=== PATIENT | female | born 1980 | race Caucasian/White ===

== ENCOUNTER 2018-09-20 18:41 | Emergency (ER) | payer OTHER, SELFPAY ==
[2018-09-20 18:42] VITALS: BP 117/78; PULSE 68; RESP 18; TEMP 36.5; O2SAT 100; BMI 31.1
--- NOTE | 2018-09-20 18:57 | ED.DCSUM_ITS ---
- ER Visit Summary Date of Service: 09/20/18 Chief Complaint: Headache History of Present Illness: The patient is a 37 F who has had a headache for the past 3 days. It is intermittent in nature. It similar to her prior migraine headaches in the past. Light makes it worse. She has had nausea without vomi ting. She admits to photophobia as well. No visual changes. She does have some pain in the neck as well. Denies any falls or trauma. She has tried Maxalt and ibuprofen without any relief. She describes as a my head is in a vice Physical Examination: Vital signs reviewed. HEENT exam unremarkable. She does have diffuse neck tenderness to palpation. Heart is regular rate and rhythm without murmurs. Lungs are clear to auscultation. Abdomen is soft and nontender. Extremities reveal no edema. Skin exam normal. Neurologic exam normal. Test Results: None performed Emergency Department Course and Treatment: Patient was given Compazine, Benadryl, Toradol and normal saline. She feels improved. Patient will be discharged home to use her home medications. She will follow-up with her PCP Treatment Plan: [] Disposition: Discharge Impression: Migraine headache This note was generated with [employer] dictation software. It may contain incorrect words, spelling, and punctuation that were not noted in review of the chart prior to signing ED Disposition - Plan for ED Patient: Chief Complaint: Headache Referrals: Eulogio Velazquez MD [Primary Care Provider] -
[2018-09-20 19:08] VITALS: BP 122/79; PULSE 63; RESP 16; O2SAT 98
[2018-09-20] MEDS: 0.9% Normal Saline 1,000 ML 999 ML IV (19:28)
[2018-09-20] MEDS: DiphenhydrAMINE 50 MG/ML Syringe 25 MG IV (19:28)
[2018-09-20] MEDS: Ketorolac 30 MG/ML Syringe IV (19:29)
[2018-09-20] MEDS: proCHLORPERazine 10 MG/2 ML Vial IV (19:29)
--- NOTE | 2018-09-20 20:08 | ED.DEP ---
ED Disposition - Plan for ED Patient: Disposition: Home or Assisted Living Chief Complaint: Headache Instructions: ED Headache Migraine Referrals: Eulogio Velazquez MD [Primary Care Provider] -
[2018-09-20 20:17] VITALS: BP 103/68; PULSE 89; RESP 18; O2SAT 98
== END 2018-09-20 20:27 | disposition home or self-care (01) ==
PROVIDERS: Emergency Provider Emergency Medicine; Family Provider Family Medicine; PCP Family Medicine
DX: G43.909 Migraine, unspecified, not intractable, without status migrainosus (principal); M54.2 Cervicalgia; I10 Essential (primary) hypertension; Z79.899 Other long term (current) drug therapy
CPT/HCPCS: 96361; 96374; 96375; 99283; J7030; A4216

== ENCOUNTER 2020-04-02 00:32 | Emergency (ER) | payer OTHER, SELFPAY ==
[2020-04-02 00:34] VITALS: BP 148/90; PULSE 70; RESP 16; TEMP 36.7; O2SAT 99; BMI 28.5
--- NOTE | 2020-04-02 01:02 | RAD_ITS ---
STUDY: X-RAY - RIGHT HAND, ATTENTION FOURTH FINGER REASON FOR EXAM: Female, 39 years old. Injury tonight. Pain. TECHNIQUE: Three view(s) of the finger were obtained. COMPARISON: None. FINDINGS: Normal metacarpal head. Normal metacarpophalangeal joint. Normal proximal phalanx. Normal middle phalanx. Questionable nondisplaced fracture of the fourth distal phalanx. Normal proximal interphalangeal joint. Normal distal interphalangeal joint. RAD/Finger(s) Min 2 Views IMPRESSION: Questionable nondisplaced fracture of the fourth distal phalanx. There is NO joint dislocation. Electronically Signed: David Rebolledo MD at 2:14 EDT , Service support ,
[2020-04-02] MEDS: Ibuprofen 400 MG Tablet 800 MG PO (01:15)
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
[2020-04-02 03:07] VITALS: BP 112/77; PULSE 68; RESP 16; O2SAT 98
== END 2020-04-02 03:10 | disposition home or self-care (01) ==
PROVIDERS: Emergency Provider Emergency Medicine; PCP Family Medicine
DX: S62.604A Fracture of unspecified phalanx of right ring finger, initial encounter for closed fracture (principal); Y93.F9 Activity, other caregiving; Y93.9 Activity, unspecified; Y92.9 Unspecified place or not applicable; Y99.9 Unspecified external cause status; Z79.899 Other long term (current) drug therapy; Z87.891 Personal history of nicotine dependence; Z90.49 Acquired absence of other specified parts of digestive tract
CPT/HCPCS: 73140; 99283